=== PATIENT | female | born 1995 | race Caucasian/White ===

== ENCOUNTER 2021-03-06 12:16 | Emergency (ER) | payer BC, OTHER ==
[~2021-03-06] VITALS: Ht 170.2 cm; Wt 69.8 kg
[2021-03-06] MEDS ORDERED: BENTYL 10 MG CA10 MG PO (12:41)
[2021-03-06] MEDS ORDERED: ALLEGRA ALLERGY60 MG PO (12:42)
[2021-03-06] MEDS ORDERED: ELIQUIS5 MG PO (12:42)
[2021-03-06] MEDS ORDERED: FLONASE ALLERG9.9 ML NARES (12:43)
--- NOTE | 2021-03-06 12:57 | EKG ---
[address] [address] ELECTROCARDIOGRAM REPORT Name: ELSA DEAN Room #: REG [facility]#: [id number] Admission: 03/06/21 Attend Phys: Discharge: Date of : [birth year] Report #: [id number] [facility] ED Test Date: 2021-03-06 Test Time: 12:25:00 Pat Name: ELSA DEAN Department: Room: Gender: F Processing Rep: JOSE ANGEL : 1995 Requested By: Wiley Richter Order Number: [id number] MD: Gerald Sweeney Measurements Intervals [place] Rate: 84 P: 72 MS: 148 QRS: 99 QRSD: 125 T: 36 QT: 379 QTc: 449 Interpretive Statements Sinus rhythm Nonspecific intraventricular conduction delay No previous ECG available for comparison Electronically Signed On 03-06-2021 12:57:19 CDT by Gerald Seweney [email or web address] <ELECTRONICALLY SIGNED> By: Gerald Sweeney MD, [facility] 03/06/21 1257 1225 1225 Gerald Sweeney MD, FACC /EPI
[2021-03-06 13:14] LABS: ABSOLUTE NEUTROPHILS 2.2 thou/uL (1.4-8.2); BASOPHILS 0.6 % (0.0-2.0); EOSINOPHILS 1.5 % (0.0-3.0); HEMATOCRIT 40.3 % (37.0-47.0); HEMOGLOBIN 13.7 gm/dL (12.0-15.0); LYMPHOCYTES 36.2 % (24.0-44.0); MCH 29.3 pg (26.0-34.0); MCV 86.3 fL (80.0-100.0); MONOCYTES 7.9 % (1.0-8.0); PLATELET COUNT 156 thou/uL (150-400); POLYS 53.8 % (36.0-66.0); RBC 4.67 mil/uL (4.20-5.00); WBC 4.2 thou/uL (4.0-11.0)
[2021-03-06 13:22] LABS: ANION GAP 8 mmol/L (7-16); BUN 15 mg/dL (7-18); CHLORIDE 105 mmol/L (98-107); CO2 27 mmol/L (21-32); CREATININE 0.8 mg/dL (0.6-1.0); GLUCOSE 115 mg/dL (74-106); POTASSIUM 3.3 mmol/L (3.5-5.1); SODIUM 140 mmol/L (136-145)
[2021-03-06 13:32] LABS: ALBUMIN 3.6 g/dL (3.4-5.0); MAGNESIUM 1.9 mg/dL (1.8-2.4); SGOT 19 U/L (15-37); SGPT 25 U/L (14-59); TOTAL BILIRUBIN 0.3 mg/dL (0.2-1.0); TOTAL PROTEIN 7.3 g/dL (6.4-8.2); TROPONIN-I <0.06 ng/mL (<0.06)
[2021-03-06 14:55] VITALS: BP 115/67
== END 2021-03-06 14:55 | disposition home or self-care (01) ==
LOC: ER 12:16
PROVIDERS: Emergency Medicine
DX: E87.6 Hypokalemia (principal); R55 Syncope and collapse; R00.2 Palpitations; R20.0 Anesthesia of skin; Z88.0 Allergy status to penicillin